=== PATIENT | male | born 1950 | race Hispanic/Latino ===

== ENCOUNTER 2018-09-30 08:01 | Day surgery (SDC) | payer BC ==
--- NOTE | 2018-09-29 11:43 | RAD REPORT ---
EXAM DESCRIPTION: RAD - Chest Pa And Lat (2 Views) - 09/29/2018 11:32 am CLINICAL HISTORY: left heart cath Chest pain. COMPARISON: CHEST SINGLE VIEW dated 06/16/2015 TECHNIQUE: PA and lateral views of the chest were obtained. FINDINGS: The lungs are hyperexpanded compatible with COPD. The heart is upper limit of normal in si ze. No fracture or aggressive bony process. IMPRESSION: COPD without acute process identified.
[2018-09-29 11:57] LABS: Absolute Monocytes 0.5 K/uL (0.1-1.3); Absolute Neutrophil 3.5 K/uL (1.8-8.0); Basophils % 0.6 % (0-1.3); Eosinophils % 2.2 % (0-4.4); Hematocrit 41.4 % (39.6-49.0); Lymphocytes % 20.1 % (15.3-44.8); MCH 33.2 pg (27.0-35.0); MCV 97.3 fL (80-100); MPV 9.7 fL (7.6-11.3); Monocytes % 8.8 % (3.3-12.3); RBC Red Blood Cell Count 4.26 M/uL (4.33-5.43)
[2018-09-29 12:37] LABS: Protime INR 1.08
[2018-09-29 14:37] LABS: Potassium 4.8 mmol/L (3.5-5.1)
[2018-09-30] MEDS ORDERED: NA CHLORIDE 0.9% 500 ML ONE (09:10)
[2018-09-30 09:36] VITALS: TEMP 97.3
[2018-09-30] MEDS ORDERED: HEPA 1000U/500MLS 1,000 UNIT/500 ML BAG IV ONE (10:17)
[2018-09-30] MEDS ORDERED: FENTANYL CITR 100 MCG/2 ML ONE (10:17)
[2018-09-30] MEDS ORDERED: MIDAZOLAM HCL 2 MG/2 ML INJ ONE ×2 (10:17→10:25)
[2018-09-30] MEDS ORDERED: NA CHLORIDE 0.9% 0 ML ONE (10:18)
[2018-09-30] MEDS ORDERED: ATROPINE SULF 1 MG/10 ML SYR IV ONE (10:18)
[2018-09-30 12:43] VITALS: O2SAT 100
[2018-09-30 12:45] VITALS: BP 123/96
--- NOTE | 2018-09-30 20:57 | OP ---
Date of Procedure: 09/30/2018 Surgeon: Sharan Gooden MD Cafe Associate: Mario Linder. Procedure: Left heart catheterization with selective coronary arteriogram. Indication: Unstable angina. History Of Present Illness: Mr. Snowden is 68. Has a history of hypertension, dyslipidemia, and t obacco abuse. Family history of heart disease. Has had a normal cardiac workup as far as stress zhanna t and echocardiography and carotid in the past, but continued to have symptoms persisted that he coul d not work because of chest pain and nausea and diaphoresis and chest tightness and dizziness. He abarca d requested a heart catheterization and this was done today as an outpatient. 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 Right common femoral artery access wa s obtained through with a 6-[place] sheath. Angiography there was normal. Angio-Seal was used to mark se the case. Heart catheterization with a 6-[place]ian catheters, Marko, left and right were done and he had perfectly normal coronaries. His left system was though tortuous, but there was no focal sten osis. Complications: None. Blood Loss: 5 cc. Total Conscious Sedation: 30 minutes. Final Diagnoses: Normal coronaries, atypical chest pain. Plan: Plan is to continue medical therapy. Consider Ear, Nose, and Throat referral. The patient wi ll be at bed rest for 2 hours, after which he can go home. He will come to see me in the office in 2 weeks. JOEL/LOBO Voice ID: [id number] Report ID: [id number]
== END 2018-09-30 12:46 | disposition home or self-care (01) ==
LOC: CCL 08:01
PROC: 4A023N7 Measurement of Cardiac Sampling and Pressure, Left Heart, Percutaneous Approach (ICD-10-PCS; principal; 2018-09-30)
PROC: B211YZZ Fluoroscopy of Multiple Coronary Arteries using Other Contrast (ICD-10-PCS; 2018-09-30)
DX: I20.0 Unstable angina (principal); I10 Essential (primary) hypertension; E78.5 Hyperlipidemia, unspecified; F17.210 Nicotine dependence, cigarettes, uncomplicated; F17.220 Nicotine dependence, chewing tobacco, uncomplicated; F17.290 Nicotine dependence, other tobacco product, uncomplicated; E78.6 Lipoprotein deficiency; R07.89 Other chest pain
CPT/HCPCS: 36222; 36415; 71046; 80048; 85025; 85610; 85730; C1760; J0583; J2250; J3010